=== PATIENT | male | born 1955 | race Caucasian/White ===

== ENCOUNTER → 2017-01-10 | Outpatient (CLI) | payer BC ==
[~2017-01-10] MED LIST: ASPIRIN81 MG PO; CYTOMEL5 MCG PO; FOLIC ACID1 MG PO; IRON PO; METHOTREXATE2.5 MG PO; MOBIC15 MG PO; OXYCODONE HCL10 MG PO; OXYCODONE HCL5 MG PO; TYLENOL325 MG PO; ULTRAM50 MG PO; VITAMIN D250000 UNIT PO
== END | disposition short-term general hospital (02) ==
LOC: CLPAIN 10:20
DX: M54.2 Cervicalgia (principal); M47.892 Other spondylosis, cervical region

== ENCOUNTER → 2017-02-07 | Outpatient (CLI) | payer BC | END | disposition short-term general hospital (02) | LOC: CLRHEU 08:56 | DX: M19.90 Unspecified osteoarthritis, unspecified site (principal) ==

== ENCOUNTER → 2017-04-09 | Outpatient (CLI) | payer BC | END | disposition short-term general hospital (02) | LOC: CLORTH 03-26 12:17 | DX: M17.11 Unilateral primary osteoarthritis, right knee (principal) ==